=== PATIENT | male | born 1990 | race Caucasian/White ===

== ENCOUNTER 2017-12-04 12:08 | Inpatient (IN) | payer OTHER ==
[2017-12-04 13:46] VITALS: BMI 19.0
--- NOTE | 2017-12-04 18:08 | HP ---
CIWA Score - CIWA Score Nausea/Vomitin Muscle Tremors: 4-Moderate,w/Arms Extend Anxiety: 4-Mod. Anxious/Guarded Agitation: 4-Moderately Restless Paroxysmal Sweats: 1-Minimal Palms Moist Orientation: 0-Oriented Tacttile Disturbances: 1-Very Mild Itch/Numbness Auditory Disturbances: 0-None Visual Disturbances: 0-None Headache: 0-None Present CIWA-Ar Total Score: 16 Admission ROS BHS - HPI Chief Complaint: WITHDRAWAL SX Allergies/Adverse Reactions: Allergies Allergy/AdvReac Type Severity Reaction Status Date / Time No Known Allergies Allergy Verified 06/10/14 16:31 History of Present Illness: 27 YEARS OLD MALE WITH LONG HISTORY OF ALCOHOL NICOTINE DEPENDENCE HAS GERD CHRONIC BACK PAIN AND ANXIETY DEPRESSION IS ADMITTED TO DETOX Exam Limitations: No Limitations - Ebola screening Have you traveled outside of the country in the last 21 days: No Have you had contact with anyone from an Ebola affected area: No Have you been sick,other than usual withdrawal symptoms: No Do you have a fever: No - Review of Systems Constitutional: Loss of Appetite, Changes in sleep, Unintentional Wgt. Loss, Unexplained wgt Loss EENT: reports: No Symptoms Reported Respiratory: reports: SOB with Exertion Cardiac: reports: No Symptoms Reported GI: reports: Diarrhea, Nausea, Poor Appetite, Poor Fluid Intake, Vomiting, Indigestion, Abdominal cramping : reports: No Symptoms Reported Musculoskeletal: reports: Back Pain, Joint Pain (SHOULDERS) Integumentary: reports: No Symptoms Reported Neuro: reports: Tremors Endocrine: reports: No Symptoms Reported Hematology: reports: No Symptoms Reported Psychiatric: reports: Judgement Intact, Orientated x3, Anxious, Depressed Other Systems: Reviewed and Negative Patient History - Patient Medical History Hx Anemia: No Hx Asthma: No Hx Chronic Obstructive Pulmonary Disease (COPD): No Hx Cancer: No Hx Cardiac Disorders: No Hx Congestive Heart Failure: No Hx Hypertension: No Hx Hypercholesterolemia: No Hx Pacemaker: No HX Cerebrovascular Accident: No Hx Seizures: No Hx Dementia: No Hx Diabetes: No Hx Gastrointestinal Disorders: Yes (acis reflux.) Hx Liver Disease: No Hx Genitourinary Disorders: No Hx Sexually Transmitted Disorders: No Hx Renal Disease (ESRD): No Hx Thyroid Disease: No Hx Human Immunodeficiency Virus (HIV): No Hx Hepatitis C: No Hx Depression: Yes Hx Suicide Attempt: No Hx Bipolar Disorder: No Hx Schizophrenia: No - Patient Surgical History Past Surgical History: No Hx Neurologic Surgery: No Hx Cataract Extraction: No Hx Cardiac Surgery: No Hx Lung Surgery: No Hx Breast Surgery: No Hx Breast Biopsy: No Hx Abdominal Surgery: No Hx Appendectomy: No Hx Cholecystectomy: No Hx Genitourinary Surgery: No Hx Orthopedic Surgery: No - PPD History Previous Implant?: Yes Documented Results: Negative w/o proof Implanted On Prior [facility] Admission?: Yes Date: 06/12/14 PPD to be Administered?: Yes - Smoking Cessation Smoking history: Current every day smoker Have you smoked in the past 12 months: Yes Aproximately how many cigarettes per day: 20 Cigars Per Day: 0 Hx Chewing Tobacco Use: No Initiated information on smoking cessation: Yes 'Breaking Loose' booklet given: 12/04/17 - Substance & Tx. History Hx Alcohol Use: Yes Hx Substance Use: Yes Substance Use Type: Marijuana Hx Substance Use Treatment: Yes ([address] [place] [address] - Substances Abused Alcohol Route: Oral Frequency: Daily Amount used: 2 pints vodka Age of first use: 11 Date of Last Use: 12/04/17 Marijuana/Hashish Route: Smoking Frequency: Daily Amount used: 2 bowls Age of first use: 11 Date of Last Use: 12/02/17 Family Disease History - Family Disease History Family Disease History: [place]: Grandparent (breast, lung), Other: Father ( alcoholism), Sister (NO SISTER) Admission Physical Exam BHS - Vital Signs Vital Signs: Vital Signs - 24 hr 12/04/17 13:43 Temperature 97.0 F L Pulse Rate 112 H Respiratory 18 Rate Blood Pressure 150/100 - Physical General Appearance: Yes: Appropriately Dressed, Moderate Distress, Alcohol on Breath, Thin, Tremorous, Irritable, Sweating, Anxious HEENTM: Yes: Hearing grossly Normal, Normal ENT Inspection, Normocephalic, Normal Voice Respiratory: Yes: Chest Non-Tender, Lungs Clear, Normal Breath Sounds, No Respiratory Distress, No Accessory Muscle Use Neck: Yes: Supple, Trachea in good position Breast: Yes: Breasts Symetrical Cardiology: Yes: S1, S2, Murmur, Tachycardia Abdominal: Yes: Non Tender, Soft, Increased Bowel Sounds Genitourinary: Yes: Within Normal Limits Back: Yes: Normal Inspection Musculoskeletal: Yes: full range of Motion, Gait Steady, Back pain, Muscle Pain (BACK) Extremities: Yes: Normal Inspection, Normal Range of Motion, Non-Tender, Tremors Neurological: Yes: Fully Oriented, Alert, Motor Strength 5/5, Normal Response, Depressed Affect Integumentary: Yes: Warm Lymphatic: Yes: Within Normal Limits - Diagnostic (1) Alcohol dependence with uncomplicated withdrawal Current Visit: Yes Status: Acute (2) Weight loss Current Visit: Yes Status: Acute (3) Tachycardia Current Visit: Yes Status: Chronic (4) Murmur, heart Current Visit: Yes Status: Chronic (5) Anxiety with depression Current Visit: Yes Status: Suspected (6) GERD (gastroesophageal reflux disease) Current Visit: Yes Status: Chronic Qualifiers: Esophagitis presence: without esophagitis Qualified Code(s): K21.9 - Gastro -esophageal reflux disease without esophagitis (7) Nicotine dependence Current Visit: Yes Status: Acute Qualifiers: Nicotine product type: cigarettes Substance use status: in withdrawal Qualified Code(s): F17.213 - Nicotine dependence, cigarettes, with withdrawal Cleared for Admission [facility] - Detox or Rehab [facility] Level of Care: Medically Managed Detox Regimen/Protocol: Librium [facility] Breath Alcohol Content Breath Alcohol Content: 0.470 Urine Drug Screen - Results Drug Screen Negative: No Urine Drug Screen Results: THC-Marijuana
[2017-12-04] MEDS ORDERED: MENTHOL/PHENOL 1 EACH UD MM PRN (18:11)
[2017-12-04] MEDS ORDERED: MAGNESIUM CITRATE 300 ML BOTTLE PO PRN (18:11)
[2017-12-04] MEDS ORDERED: guaiFENesin/D-METHORPHAN HB 10 ML UNIT-DOSE CUPS PO PRN (18:11)
[2017-12-04] MEDS ORDERED: LOPERAMIDE HCL 2 MG CAPSULE PO PRN (18:11)
[2017-12-04] MEDS ORDERED: ACETAMINOPHEN 325 MG TABLET (FP) PO PRN (18:11)
[2017-12-04] MEDS ORDERED: MAGNESIUM HYDROX 2400MG/30ML ORAL SUSPENSION 30 ML CUP PO PRN (18:11)
[2017-12-04] MEDS ORDERED: MAG HYDROX/AL HYDROX/SIMETH 30 ML UNIT-DOSE CUP PO PRN (18:11)
[2017-12-04] MEDS ORDERED: P-EPHED 60MG/TRIPROLIDI 2.5MG TABLET PO PRN (18:11)
[2017-12-04] MEDS: chlordiazePOXIDE HCL 25 MG CAPSULE PO PRN (19:10)
[2017-12-04] MEDS: NICOTINE POLACRILEX 4 MG GUM BC PRN ×2 (19:47→22:18)
[2017-12-04] MEDS: NAPROXEN 500 MG TABLET (FP) PO SCH (22:15)
[2017-12-04] MEDS: METHOCARBAMOL 500 MG TABLET PO SCH (22:15)
[2017-12-04] MEDS: chlordiazePOXIDE HCL 25 MG CAPSULE PO SCH (22:15)
[2017-12-04] MEDS: RANITIDINE HCL 150 MG TABLET (FP) PO SCH (22:15)
[2017-12-04] MEDS: THIAMINE HCL 100 MG TABLET (FP) PO SCH (22:15)
[2017-12-05] MEDS: chlordiazePOXIDE HCL 25 MG CAPSULE PO PRN ×2 (00:31→14:43)
[2017-12-05 05:10] LABS: URINE APPEARANCE SLCLOUDY; URINE BILIRUBIN NEGATIVE (NEGATIVE); URINE BLOOD NEGATIVE (NEGATIVE); URINE COLOR AMBER; URINE GLUCOSE (UA) NEGATIVE (NEGATIVE); URINE KETONE TRACE (NEGATIVE); URINE LEUK ESTERASE NEGATIVE (NEGATIVE); URINE NITRITE NEGATIVE (NEGATIVE); URINE UROBILINOGEN NEGATIVE mg/dL (0.2-1.0)
[2017-12-05 05:20] LABS: URINE PROTEIN 3+ (NEGATIVE)
[2017-12-05 05:32] LABS: EPI CELLS RARE /HPF (FEW); URINE BACTERIA RARE /hpf (NONE SEEN); URINE HYALINE CAST 24 /lpf; URINE MUCUS MODERATE
[2017-12-05] MEDS: chlordiazePOXIDE HCL 25 MG CAPSULE PO SCH ×4 (05:59→22:15)
[2017-12-05] MEDS: METHOCARBAMOL 500 MG TABLET PO SCH ×3 (05:59→22:16)
[2017-12-05] MEDS: ONDANSETRON *ODT* 4 MG TABLET SL PRN (09:37)
[2017-12-05] MEDS: NICOTINE 21 MG/24 HOURS TOPICAL PATCH TD SCH (09:38)
[2017-12-05 10:16] LABS: CHLORIDE 90 mmol/L (98-107); POTASSIUM 3.2 mmol/L (3.5-5.1); SODIUM 134 mmol/L (136-145)
[2017-12-05] MEDS: RANITIDINE HCL 150 MG TABLET (FP) PO SCH ×2 (10:19→22:16)
[2017-12-05] MEDS: PRENATAL VITAMINS W/ FOLIC ACID TABLET (FP) PO SCH (10:19)
[2017-12-05] MEDS: NAPROXEN 500 MG TABLET (FP) PO SCH ×2 (10:19→22:16)
[2017-12-05 10:21] LABS: ALBUMIN 4.4 g/dl (3.4-5.0); ALK PHOS 61 U/L (45-117); ANION GAP 9 (8-16); BLOOD UREA NITROGEN 18 mg/dL (7-18); CALCIUM 9.4 mg/dL (8.5-10.1); CO2 35 mmol/L (21-32); CREATININE 1.1 mg/dL (0.7-1.3); GLUCOSE,RANDOM 77 mg/dL (74-106); SGOT/AST 62 U/L (15-37); SGPT/ALT 63 U/L (12-78); TOT PROT 7.3 g/dl (6.4-8.2)
--- NOTE | 2017-12-05 10:34 | PN ---
[facility] CIWA - CIWA Score Nausea/Vomitin-Int. Nausea w/Dry Heave Muscle Tremors: 4-Moderate,w/Arms Extend Anxiety: 4-Mod. Anxious/Guarded Agitation: 4-Moderately Restless Paroxysmal Sweats: 1-Minimal Palms Moist Orientation: 0-Oriented Tacttile Disturbances: 3-Moderate Itch/Numb/Burn Auditory Disturbances: 0-None Visual Disturbances: 0-None Headache: 0-None Present CIWA-Ar Total Score: 20 BHS Progress Note (SOAP) Subjective: ANXIETY,TREMORS,NAUSEA,FATIGUE,INTERMITTENT SLEEP. Objective: 12/05/17 10:33 Vital Signs Temperature 97.7 F 12/05/17 09:53 Pulse Rate 96 H 12/05/17 09:53 Respiratory Rate 18 12/05/17 09:53 Blood Pressure 152/99 12/05/17 09:53 O2 Sat by Pulse Oximetry (%) Laboratory Last Values Sodium 134 mmol/L (136-145) L 12/05/17 08:00 Potassium 3.2 mmol/L (3.5-5.1) L D 12/05/17 08:00 Chloride 90 mmol/L (98-107) L D 12/05/17 08:00 Carbon Dioxide 35 mmol/L (21-32) H D 12/05/17 08:00 Anion Gap 9 (8-16) 12/05/17 08:00 BUN 18 mg/dL (7-18) 12/05/17 08:00 Creatinine 1.1 mg/dL (0.7-1.3) D 12/05/17 08:00 Creat Clearance w eGFR > 60 (>60) 12/05/17 08:00 Random Glucose 77 mg/dL (74-106) 12/05/17 08:00 Calcium 9.4 mg/dL (8.5-10.1) 12/05/17 08:00 Total Bilirubin 1.0 mg/dL (0.2-1.0) D 12/05/17 08:00 AST 62 U/L (15-37) H D 12/05/17 08:00 ALT 63 U/L (12-78) D 12/05/17 08:00 Alkaline Phosphatase 61 U/L (45-117) 12/05/17 08:00 Total Protein 7.3 g/dl (6.4-8.2) 12/05/17 08:00 Albumin 4.4 g/dl (3.4-5.0) 12/05/17 08:00 Urine Color Dottie 12/04/17 06:30 Urine Appearance Slcloudy 12/04/17 06:30 Urine pH 5.0 (5.0-8.0) D 12/04/17 06:30 Ur Specific [place] 1.019 (1.001-1.035) 12/04/17 06:30 Urine Protein 3+ (NEGATIVE) H D 12/04/17 06:30 Urine Glucose (UA) Negative (NEGATIVE) 12/04/17 06:30 Urine Ketones Trace (NEGATIVE) H 12/04/17 06:30 Urine Blood Negative (NEGATIVE) 12/04/17 06:30 Urine Nitrite Negative (NEGATIVE) 12/04/17 06:30 Urine Bilirubin Negative (NEGATIVE) 12/04/17 06:30 Urine Urobilinogen Negative mg/dL (0.2-1.0) 12/04/17 06:30 Ur Leukocyte Esterase Negative (NEGATIVE) 12/04/17 06:30 Urine WBC (Auto) 4 /hpf (3-5) 12/04/17 06:30 Urine RBC (Auto) 3 /hpf (0-3) 12/04/17 06:30 Ur Epithelial Cells Rare /HPF (FEW) 12/04/17 06:30 Urine Bacteria Rare /hpf (NONE SEEN) 12/04/17 06:30 Hyaline Casts 24 /lpf 12/04/17 06:30 Urine Mucus Moderate 12/04/17 06:30 K+ = 3.2 Assessment: 12/05/17 10:33 WITHDRAWAL SX Plan: CONTINUE DETOX [facility]UR DIRECTED
[2017-12-05 10:35] LABS: HEMATOCRIT 36.6 % (35.4-49); HEMOGLOBIN 12.3 GM/dL (11.7-16.9); MCH 32.5 pg (25.7-33.7); MCHC 33.6 g/dl (32.0-35.9); MEAN CELL VOLUME 96.7 fl (80-96); MEAN PLT VOLUME 7.7 fl (7.5-11.1); PLATELET COUNT 277 K/MM3 (134-434); RBC 3.78 M/mm3 (4.00-5.60); RDW 13.6 % (11.9-15.9); WHITE BLOOD COUNT 6.8 K/mm3 (4.0-10.0)
[2017-12-05] MEDS ORDERED: POTASSIUM CHLORIDE ORAL LIQUID 20 MEQ/15 ML PO ONE (10:35)
--- NOTE | 2017-12-05 11:52 | CONSULT ---
[facility] Psychiatric Consult - Data Date of interview: 12/05/17 Admission source: [facility] Identifying data: Readmission to 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 Substance Abuse History: Confirmed by patient in this session.See details in current [facility] report : Smoking history: Current every day smoker. Have you smoked in the past 12 months: Yes. Aproximately how many cigarettes per day: 20. Cigars Per Day: 0. Hx Chewing Tobacco Use: No. Initiated information on smoking cessation: Yes. 'Breaking Loose' booklet given: 12/04/17. - Substance & Tx. History. Hx Alcohol Use: Yes. Hx Substance Use: Yes. Substance Use Type : Marijuana. Hx Substance Use Treatment: Yes (2013). - Substances Abused. Alcohol. Route: Oral. Frequency: Daily. Amount used: 2 pints vodka. Age of first use: 11. Date of Last Use: 12/04/17. Marijuana/ Hashish. Route: Smoking. Frequency: Daily. Amount used: 2 bowls. Age of first use: 11. Date of Last Use: 12/02/17 Medical History: GERD. Psychiatric History: Patient denies. Physical/Sexual Abuse/Trauma History: Patient denies. Additional Comment: Urine Drug Screen Results: THC-Marijuana.Noted. Mental Status Exam - Mental Status Exam Alert and Oriented to: Time, Place, Person Cognitive Function: Good Patient Appearance: Well Groomed Mood: Hopeful, Euthymic Affect: Appropriate, Normal Range Patient Behavior: Fatigued, Appropriate, Cooperative Speech Pattern: Clear, Appropriate Voice Loudness: Normal Thought Process: Intact, Goal Oriented Thought Disorder: Not Present Hallucinations: Denies Suicidal Ideation: Denies Homicidal Ideation: Denies Insight/Judgement: Poor Sleep: Poorly, Difficulty falling asleep Appetite: Good Muscle strength/Tone: Normal Gait/Station: Normal Psychiatric Findings - Problem List ([place] 1, 2,3) (1) Alcohol dependence with uncomplicated withdrawal Current Visit: Yes Status: Acute (2) Cannabis dependence Current Visit: Yes Status: Acute (3) Nicotine dependence Current Visit: Yes Status: Acute Qualifiers: Nicotine product type: cigarettes Substance use status: in withdrawal Qualified Code(s): F17.213 - Nicotine dependence, cigarettes, with withdrawal (4) Insomnia Current Visit: Yes Status: Acute - Initial Treatment Plan Initial Treatment Plan: Psychoeducation and support provided.Sleep hygiene discussed.Detoxification in progress.Trazodone 50 mg po hs.Ordered (patient's request).Patient is made aware of risk of priapism and instructed to alert MD/ RN if occurrence of erectile abnormalities (prolonged duration/pain).Mr Beckham consented (verbally) to follow this careplan.Observation.
--- NOTE | 2017-12-05 14:42 | EKG ---
Test Reason : Blood Pressure : / mmHG Vent. Rate : 087 BPM Atrial Rate : 087 BPM P-R Int : 168 ms QRS Dur : 100 ms QT Int : 502 ms P-R-T Axes : 068 085 076 degrees QTc Int : 604 ms NORMAL SINUS RHYTHM POSSIBLE LEFT ATRIAL ENLARGEMENT INCOMPLETE RIGHT BUNDLE BRANCH BLOCK LEFT VENTRICULAR HYPERTROPHY PROLONGED QT ABNORMAL ECG Confirmed by Abhijeet Hayward MD ([id number]) on 12/05/2017 2:41:50 PM Referred By: Confirmed By:Abhijeet Hayward MD
--- NOTE | 2017-12-05 14:45 | EKG ---
Test Reason : Blood Pressure : / mmHG Vent. Rate : 103 BPM Atrial Rate : 103 BPM P-R Int : 166 ms QRS Dur : 084 ms QT Int : 360 ms P-R-T Axes : 065 086 061 degrees QTc Int : 471 ms SINUS TACHYCARDIA POSSIBLE LEFT ATRIAL ENLARGEMENT NONSPECIFIC ST ABNORMALITY ABNORMAL ECG WHEN COMPARED WITH ECG OF 04-DEC-2017 20:15, T WAVE INVERSION NO LONGER EVIDENT IN INFERIOR LEADS Confirmed by Abhijeet Hayward MD ([id number]) on 12/05/2017 2:45:24 PM Referred By: Confirmed By:Abhijeet Hayward MD
--- NOTE | 2017-12-05 15:19 | EKG ---
Test Reason : Blood Pressure : / mmHG Vent. Rate : 117 BPM Atrial Rate : 117 BPM P-R Int : 158 ms QRS Dur : 088 ms QT Int : 332 ms P-R-T Axes : 072 088 -41 degrees QTc Int : 463 ms SINUS TACHYCARDIA BIATRIAL ENLARGEMENT LEFT VENTRICULAR HYPERTROPHY ABNORMAL ECG NO PREVIOUS ECGS AVAILABLE Confirmed by Abhijeet Hayward MD ([id number]) on 12/05/2017 3:18:55 PM Referred By: Confirmed By:Abhijeet Hayward MD
[2017-12-05] MEDS: POTASSIUM CHLORIDE ORAL LIQUID 20 MEQ/15 ML PO SCH (22:15)
[2017-12-05] MEDS: THIAMINE HCL 100 MG TABLET (FP) PO SCH (22:15)
[2017-12-05] MEDS: traZODone HCL 50 MG TABLET (FP) PO SCH (22:16)
[2017-12-06] MEDS: METHOCARBAMOL 500 MG TABLET PO SCH ×3 (05:10→22:19)
[2017-12-06] MEDS: chlordiazePOXIDE HCL 25 MG CAPSULE PO SCH ×3 (05:10→17:20)
[2017-12-06] MEDS: ONDANSETRON *ODT* 4 MG TABLET SL PRN (08:55)
[2017-12-06] MEDS: NICOTINE 21 MG/24 HOURS TOPICAL PATCH TD SCH (09:01)
[2017-12-06] MEDS: NAPROXEN 500 MG TABLET (FP) PO SCH ×2 (10:07→22:19)
[2017-12-06] MEDS: PRENATAL VITAMINS W/ FOLIC ACID TABLET (FP) PO SCH (10:07)
[2017-12-06] MEDS: POTASSIUM CHLORIDE ORAL LIQUID 20 MEQ/15 ML PO SCH ×2 (10:07→22:19)
[2017-12-06] MEDS: RANITIDINE HCL 150 MG TABLET (FP) PO SCH ×2 (10:07→22:19)
--- NOTE | 2017-12-06 12:15 | PN ---
[facility] CIWA - CIWA Score Nausea/Vomitin-No Nausea/No Vomiting Muscle Tremors: 4-Moderate,w/Arms Extend Anxiety: 4-Mod. Anxious/Guarded Agitation: 4-Moderately Restless Paroxysmal Sweats: 1-Minimal Palms Moist Orientation: 0-Oriented Tacttile Disturbances: 3-Moderate Itch/Numb/Burn Auditory Disturbances: 0-None Visual Disturbances: 0-None Headache: 0-None Present CIWA-Ar Total Score: 16 S Progress Note (SOAP) Subjective: ANXIETY,TREMORS,CHILLS,SWEATS. N/V RESOLVING. Objective: 12/06/17 12:14 Vital Signs Temperature 97.2 F L 12/06/17 10:07 Pulse Rate 93 H 12/06/17 10:07 Respiratory Rate 18 12/06/17 10:07 Blood Pressure 131/95 12/06/17 10:07 O2 Sat by Pulse Oximetry (%) Laboratory Last Values WBC 6.8 K/mm3 (4.0-10.0) 12/05/17 08:00 RBC 3.78 M/mm3 (4.00-5.60) L 12/05/17 08:00 Hgb 12.3 GM/dL (11.7-16.9) 12/05/17 08:00 Hct 36.6 % (35.4-49) 12/05/17 08:00 MCV 96.7 fl (80-96) H 12/05/17 08:00 MCH 32.5 pg (25.7-33.7) 12/05/17 08:00 MCHC 33.6 g/dl (32.0-35.9) 12/05/17 08:00 RDW 13.6 % (11.9-15.9) 12/05/17 08:00 Plt Count 277 K/MM3 (134-434) D 12/05/17 08:00 MPV 7.7 fl (7.5-11.1) 12/05/17 08:00 Sodium 134 mmol/L (136-145) L 12/05/17 08:00 Potassium 3.2 mmol/L (3.5-5.1) L D 12/05/17 08:00 Chloride 90 mmol/L (98-107) L D 12/05/17 08:00 Carbon Dioxide 35 mmol/L (21-32) H D 12/05/17 08:00 Anion Gap 9 (8-16) 12/05/17 08:00 BUN 18 mg/dL (7-18) 12/05/17 08:00 Creatinine 1.1 mg/dL (0.7-1.3) D 12/05/17 08:00 Creat Clearance w eGFR > 60 (>60) 12/05/17 08:00 Random Glucose 77 mg/dL (74-106) 12/05/17 08:00 Calcium 9.4 mg/dL (8.5-10.1) 12/05/17 08:00 Total Bilirubin 1.0 mg/dL (0.2-1.0) D 12/05/17 08:00 AST 62 U/L (15-37) H D 12/05/17 08:00 ALT 63 U/L (12-78) D 12/05/17 08:00 Alkaline Phosphatase 61 U/L (45-117) 12/05/17 08:00 Total Protein 7.3 g/dl (6.4-8.2) 12/05/17 08:00 Albumin 4.4 g/dl (3.4-5.0) 12/05/17 08:00 Urine Color Dottie 12/04/17 06:30 Urine Appearance Slcloudy 12/04/17 06:30 Urine pH 5.0 (5.0-8.0) D 12/04/17 06:30 Ur Specific [place] 1.019 (1.001-1.035) 12/04/17 06:30 Urine Protein 3+ (NEGATIVE) H D 12/04/17 06:30 Urine Glucose (UA) Negative (NEGATIVE) 12/04/17 06:30 Urine Ketones Trace (NEGATIVE) H 12/04/17 06:30 Urine Blood Negative (NEGATIVE) 12/04/17 06:30 Urine Nitrite Negative (NEGATIVE) 12/04/17 06:30 Urine Bilirubin Negative (NEGATIVE) 12/04/17 06:30 Urine Urobilinogen Negative mg/dL (0.2-1.0) 12/04/17 06:30 Ur Leukocyte Esterase Negative (NEGATIVE) 12/04/17 06:30 Urine WBC (Auto) 4 /hpf (3-5) 12/04/17 06:30 Urine RBC (Auto) 3 /hpf (0-3) 12/04/17 06:30 Ur Epithelial Cells Rare /HPF (FEW) 12/04/17 06:30 Urine Bacteria Rare /hpf (NONE SEEN) 12/04/17 06:30 Hyaline Casts 24 /lpf 12/04/17 06:30 Urine Mucus Moderate 12/04/17 06:30 RPR Titer Nonreactive (NONREACTIVE) 12/05/17 08:00 Hepatitis C Antibody <0.1 s/co ratio (0.0-0.9) 12/04/17 08:00 Assessment: 12/06/17 12:14 WITHDRAWAL SX Plan: CONTINUE DETOX
[2017-12-06] MEDS: chlordiazePOXIDE HCL 25 MG CAPSULE PO PRN (14:05)
[2017-12-06] MEDS: NICOTINE POLACRILEX 4 MG GUM BC PRN (18:09)
[2017-12-06] MEDS: THIAMINE HCL 100 MG TABLET (FP) PO SCH (22:18)
[2017-12-06] MEDS: chlordiazePOXIDE 5 MG CAPSULE PO SCH (22:19)
[2017-12-06] MEDS: traZODone HCL 50 MG TABLET (FP) PO SCH (22:19)
[2017-12-07] MEDS: chlordiazePOXIDE 5 MG CAPSULE PO SCH ×3 (05:17→17:51)
[2017-12-07] MEDS: METHOCARBAMOL 500 MG TABLET PO SCH ×3 (05:18→22:14)
[2017-12-07 10:06] LABS: CHLORIDE 100 mmol/L (98-107); POTASSIUM 3.9 mmol/L (3.5-5.1); SODIUM 138 mmol/L (136-145)
[2017-12-07] MEDS: RANITIDINE HCL 150 MG TABLET (FP) PO SCH ×2 (10:15→22:14)
[2017-12-07] MEDS: PRENATAL VITAMINS W/ FOLIC ACID TABLET (FP) PO SCH (10:15)
[2017-12-07] MEDS: NAPROXEN 500 MG TABLET (FP) PO SCH ×2 (10:17→22:14)
[2017-12-07] MEDS: POTASSIUM CHLORIDE ORAL LIQUID 20 MEQ/15 ML PO SCH ×2 (10:17→22:14)
[2017-12-07] MEDS: NICOTINE 21 MG/24 HOURS TOPICAL PATCH TD SCH (10:17)
[2017-12-07 10:24] LABS: ANION GAP 5 (8-16); BLOOD UREA NITROGEN 27 mg/dL (7-18); CALCIUM 8.6 mg/dL (8.5-10.1); CO2 33 mmol/L (21-32); GLUCOSE,RANDOM 87 mg/dL (74-106)
--- NOTE | 2017-12-07 10:43 | PN ---
BHS Progress Note (SOAP) Subjective: SLIGHT TREMORS,ANXIETY,NAUSEA. Objective: 12/07/17 10:42 Vital Signs Temperature 97.2 F L 12/07/17 09:25 Pulse Rate 91 H 12/07/17 09:25 Respiratory Rate 18 12/07/17 09:25 Blood Pressure 140/88 12/07/17 09:25 O2 Sat by Pulse Oximetry (%) Laboratory Last Values WBC 6.8 K/mm3 (4.0-10.0) 12/05/17 08:00 RBC 3.78 M/mm3 (4.00-5.60) L 12/05/17 08:00 Hgb 12.3 GM/dL (11.7-16.9) 12/05/17 08:00 Hct 36.6 % (35.4-49) 12/05/17 08:00 MCV 96.7 fl (80-96) H 12/05/17 08:00 MCH 32.5 pg (25.7-33.7) 12/05/17 08:00 MCHC 33.6 g/dl (32.0-35.9) 12/05/17 08:00 RDW 13.6 % (11.9-15.9) 12/05/17 08:00 Plt Count 277 K/MM3 (134-434) D 12/05/17 08:00 MPV 7.7 fl (7.5-11.1) 12/05/17 08:00 Sodium 138 mmol/L (136-145) 12/07/17 07:00 Potassium 3.9 mmol/L (3.5-5.1) D 12/07/17 07:00 Chloride 100 mmol/L (98-107) D 12/07/17 07:00 Carbon Dioxide 33 mmol/L (21-32) H 12/07/17 07:00 Anion Gap 5 (8-16) L 12/07/17 07:00 BUN 27 mg/dL (7-18) H D 12/07/17 07:00 Creatinine 1.0 mg/dL (0.7-1.3) 12/07/17 07:00 Creat Clearance w eGFR > 60 (>60) 12/05/17 08:00 Random Glucose 87 mg/dL (74-106) 12/07/17 07:00 Calcium 8.6 mg/dL (8.5-10.1) 12/07/17 07:00 Total Bilirubin 1.0 mg/dL (0.2-1.0) D 12/05/17 08:00 AST 62 U/L (15-37) H D 12/05/17 08:00 ALT 63 U/L (12-78) D 12/05/17 08:00 Alkaline Phosphatase 61 U/L (45-117) 12/05/17 08:00 Total Protein 7.3 g/dl (6.4-8.2) 12/05/17 08:00 Albumin 4.4 g/dl (3.4-5.0) 12/05/17 08:00 Urine Color Dottie 12/04/17 06:30 Urine Appearance Slcloudy 12/04/17 06:30 Urine pH 5.0 (5.0-8.0) D 12/04/17 06:30 Ur Specific [place] 1.019 (1.001-1.035) 12/04/17 06:30 Urine Protein 3+ (NEGATIVE) H D 12/04/17 06:30 Urine Glucose (UA) Negative (NEGATIVE) 12/04/17 06:30 Urine Ketones Trace (NEGATIVE) H 12/04/17 06:30 Urine Blood Negative (NEGATIVE) 12/04/17 06:30 Urine Nitrite Negative (NEGATIVE) 12/04/17 06:30 Urine Bilirubin Negative (NEGATIVE) 12/04/17 06:30 Urine Urobilinogen Negative mg/dL (0.2-1.0) 12/04/17 06:30 Ur Leukocyte Esterase Negative (NEGATIVE) 12/04/17 06:30 Urine WBC (Auto) 4 /hpf (3-5) 12/04/17 06:30 Urine RBC (Auto) 3 /hpf (0-3) 12/04/17 06:30 Ur Epithelial Cells Rare /HPF (FEW) 12/04/17 06:30 Urine Bacteria Rare /hpf (NONE SEEN) 12/04/17 06:30 Hyaline Casts 24 /lpf 12/04/17 06:30 Urine Mucus Moderate 12/04/17 06:30 RPR Titer Nonreactive (NONREACTIVE) 12/05/17 08:00 Hepatitis C Antibody <0.1 s/co ratio (0.0-0.9) 12/04/17 08:00 Assessment: 01/11/18 10:43 WITHDRAWAL SX Plan: CONTINUE DETOX
[2017-12-07] MEDS ORDERED: chlordiazePOXIDE HCL 25 MG CAPSULE PO ONE (14:30)
[2017-12-07] MEDS: NICOTINE POLACRILEX 4 MG GUM BC PRN (17:53)
[2017-12-07] MEDS: traZODone HCL 50 MG TABLET (FP) PO SCH (22:14)
[2017-12-07] MEDS: chlordiazePOXIDE HCL 10 MG CAPSULE PO SCH (22:14)
[2017-12-07] MEDS: THIAMINE HCL 100 MG TABLET (FP) PO SCH (22:14)
[2017-12-08] MEDS: chlordiazePOXIDE HCL 10 MG CAPSULE PO SCH ×2 (05:13→10:11)
[2017-12-08] MEDS: METHOCARBAMOL 500 MG TABLET PO SCH (05:13)
[2017-12-08 09:49] VITALS: BP 121/78; PULSE 111; TEMP 96
[2017-12-08] MEDS: PRENATAL VITAMINS W/ FOLIC ACID TABLET (FP) PO SCH (10:11)
[2017-12-08] MEDS: NICOTINE 21 MG/24 HOURS TOPICAL PATCH TD SCH (10:11)
[2017-12-08] MEDS: POTASSIUM CHLORIDE ORAL LIQUID 20 MEQ/15 ML PO SCH (10:11)
[2017-12-08] MEDS: NAPROXEN 500 MG TABLET (FP) PO SCH (10:11)
[2017-12-08] MEDS: RANITIDINE HCL 150 MG TABLET (FP) PO SCH (10:11)
--- NOTE | 2017-12-08 10:43 | DS ---
[facility] Detox Discharge Summary Admission Date: 12/04/17 Discharge Date: 12/08/17 - History Present History: Alcohol Dependence, Cannabis Dependence Additional Comments: DETOX COMPLETED. ALERT O X 3. REFERRED TO REHAB TODAY. Pertinent Past History: GERD HEART MURMUR TACHYCARDIA WEIGHT LOSS - Physical Exam Results Vital Signs: Vital Signs Temperature 96 F L 12/08/17 09:48 Pulse Rate 111 H 12/08/17 09:48 Respiratory Rate 18 12/08/17 09:48 Blood Pressure 121/78 12/08/17 09:48 O2 Sat by Pulse Oximetry (%) Pertinent Admission Physical Exam Findings: WITHDRAWAL SX Laboratory Last Values WBC 6.8 K/mm3 (4.0-10.0) 12/05/17 08:00 RBC 3.78 M/mm3 (4.00-5.60) L 12/05/17 08:00 Hgb 12.3 GM/dL (11.7-16.9) 12/05/17 08:00 Hct 36.6 % (35.4-49) 12/05/17 08:00 MCV 96.7 fl (80-96) H 12/05/17 08:00 MCH 32.5 pg (25.7-33.7) 12/05/17 08:00 MCHC 33.6 g/dl (32.0-35.9) 12/05/17 08:00 RDW 13.6 % (11.9-15.9) 12/05/17 08:00 Plt Count 277 K/MM3 (134-434) D 12/05/17 08:00 MPV 7.7 fl (7.5-11.1) 12/05/17 08:00 Sodium 138 mmol/L (136-145) 12/07/17 07:00 Potassium 3.9 mmol/L (3.5-5.1) D 12/07/17 07:00 Chloride 100 mmol/L (98-107) D 12/07/17 07:00 Carbon Dioxide 33 mmol/L (21-32) H 12/07/17 07:00 Anion Gap 5 (8-16) L 12/07/17 07:00 BUN 27 mg/dL (7-18) H D 12/07/17 07:00 Creatinine 1.0 mg/dL (0.7-1.3) 12/07/17 07:00 Creat Clearance w eGFR > 60 (>60) 12/05/17 08:00 Random Glucose 87 mg/dL (74-106) 12/07/17 07:00 Calcium 8.6 mg/dL (8.5-10.1) 12/07/17 07:00 Total Bilirubin 1.0 mg/dL (0.2-1.0) D 12/05/17 08:00 AST 62 U/L (15-37) H D 12/05/17 08:00 ALT 63 U/L (12-78) D 12/05/17 08:00 Alkaline Phosphatase 61 U/L (45-117) 12/05/17 08:00 Total Protein 7.3 g/dl (6.4-8.2) 12/05/17 08:00 Albumin 4.4 g/dl (3.4-5.0) 12/05/17 08:00 Urine Color Dottie 12/04/17 06:30 Urine Appearance Slcloudy 12/04/17 06:30 Urine pH 5.0 (5.0-8.0) D 12/04/17 06:30 Ur Specific [place] 1.019 (1.001-1.035) 12/04/17 06:30 Urine Protein 3+ (NEGATIVE) H D 12/04/17 06:30 Urine Glucose (UA) Negative (NEGATIVE) 12/04/17 06:30 Urine Ketones Trace (NEGATIVE) H 12/04/17 06:30 Urine Blood Negative (NEGATIVE) 12/04/17 06:30 Urine Nitrite Negative (NEGATIVE) 12/04/17 06:30 Urine Bilirubin Negative (NEGATIVE) 12/04/17 06:30 Urine Urobilinogen Negative mg/dL (0.2-1.0) 12/04/17 06:30 Ur Leukocyte Esterase Negative (NEGATIVE) 12/04/17 06:30 Urine WBC (Auto) 4 /hpf (3-5) 12/04/17 06:30 Urine RBC (Auto) 3 /hpf (0-3) 12/04/17 06:30 Ur Epithelial Cells Rare /HPF (FEW) 12/04/17 06:30 Urine Bacteria Rare /hpf (NONE SEEN) 12/04/17 06:30 Hyaline Casts 24 /lpf 12/04/17 06:30 Urine Mucus Moderate 12/04/17 06:30 RPR Titer Nonreactive (NONREACTIVE) 12/05/17 08:00 Hepatitis C Antibody <0.1 s/co ratio (0.0-0.9) 12/04/17 08:00 - Treatment Hospital Course: Detox Protocol Followed, Detoxed Safely, Responded well, Discharged Condition Good, Rehab Referral Accepted Patient has Accepted a Rehab Referral to: [facility] - Medication Discharge Medications: Ambulatory Orders Esomeprazole Mag Trihydrate [Nexium] 40 mg PO DAILY 06/10/14 Trazodone HCl [Desyrel -] 50 mg PO HS #30 tablet 12/05/17 - Diagnosis (1) Alcohol dependence with uncomplicated withdrawal Status: Acute (2) Nicotine dependence Status: Chronic Qualifiers: Nicotine product type: cigarettes Substance use status: in withdrawal Qualified Code(s): F17.213 - Nicotine dependence, cigarettes, with withdrawal (3) Weight loss Status: Acute (4) GERD (gastroesophageal reflux disease) Status: Chronic Qualifiers: Esophagitis presence: without esophagitis Qualified Code(s): K21.9 - Gastro -esophageal reflux disease without esophagitis - AMA Did Patient Leave Against Medical Advice: No
== END 2017-12-08 10:52 | disposition other institution (70) | DRG 775 ==
LOC: YASAS 12:08 → Y3N 17:32
PROVIDERS: ADMIT Internal Medicine; ATTEND Internal Medicine
PROC: HZ2ZZZZ Detoxification Services for Substance Abuse Treatment (ICD-10-PCS; principal; 2017-12-04)
DX: F10.230 Alcohol dependence with withdrawal, uncomplicated (principal); F12.20 Cannabis dependence, uncomplicated; F17.213 Nicotine dependence, cigarettes, with withdrawal; F10.280 Alcohol dependence with alcohol-induced anxiety disorder; F10.282 Alcohol dependence with alcohol-induced sleep disorder; F32.9 Major depressive disorder, single episode, unspecified; F41.8 Other specified anxiety disorders; G47.00 Insomnia, unspecified; R63.4 Abnormal weight loss; Z68.1 Body mass index [BMI] 19.9 or less, adult; R00.0 Tachycardia, unspecified; R01.1 Cardiac murmur, unspecified
CPT/HCPCS: 36415; 80048; 80053; 81003; 81015; 85027; 86593; 86803; 93005; 93010

== ENCOUNTER 2017-12-08 11:03 | Inpatient (IN) | payer OTHER ==
--- NOTE | 2017-12-08 11:15 | HP ---
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 Smokes cigarette 1ppd Psychiatric History: [place] history of previous psychiatric treatment. However, reports being prescribed Trazadone for insomnia. He was continued on trazadone 50 mg po HS for sleep by Dr Tillman on 12/05/17 while in detox Physical/Sexual Abuse/Trauma History: Denies history of verbal, physical or sexualabuse as well as DV relationship Additional Comment: Reports one previous arrest on charges of DWI in August 09, 2013 Allergies/Adverse Reactions: Allergies Allergy/AdvReac Type Severity Reaction Status Date / Time No Known Allergies Allergy Verified 06/10/14 16:31 Date of last physical exam: 12/04/17 Concur with the findings of this exam: Yes - Substance Abuse/Tx History Hx Alcohol Use: Yes Hx Substance Use: Yes Substance Use Type: Alcohol (Started drinking alcohol at age 11, consumes 2 pints of vodka daily. Last drank on 12/04/17), Marijuana (Started smoking marijuana at age 11, consumes 2 bowls daily. Last smoked on 12/02/17) Hx Substance Use Treatment: Yes (3 previous inpt detox & 2 inpt rehab admissions ) Mental Status Exam - Mental Status Exam Alert and Oriented to: Time, Place, Person Cognitive Function: Fair Patient Appearance: Well Groomed Mood: Anxious Affect: Appropriate Patient Behavior: Cooperative Speech Pattern: Clear Voice Loudness: Normal Thought Process: Intact, Goal Oriented Hallucinations: Denies Suicidal Ideation: Denies Homicidal Ideation: Denies Insight/Judgement: Fair Sleep: Poorly Appetite: Good Muscle strength/Tone: Normal Gait/Station: Normal Psychiatric Findings - Problem List ([place] 1, 2,3) (1) Alcohol dependence Current Visit: No Status: Acute (2) Cannabis dependence Current Visit: No Status: Acute (3) Nicotine dependence Current Visit: Yes Status: Chronic (4) Alcohol-induced anxiety disorder Current Visit: Yes Status: Acute (5) Alcohol-induced sleep disorder Current Visit: Yes Status: Acute (6) GERD (gastroesophageal reflux disease) Current Visit: No Status: Chronic Qualifiers: Esophagitis presence: without esophagitis Qualified Code(s): K21.9 - Gastro -esophageal reflux disease without esophagitis (7) Hypercholesterolemia Current Visit: No Status: Chronic - Initial Treatment Plan Initial Treatment Plan: 1) Continue [id number] mg po HS for insomnia. 2) Monitor progress
[2017-12-08 12:01] VITALS: BMI 19.3
[2017-12-08] MEDS ORDERED: MAGNESIUM CITRATE 300 ML BOTTLE PO PRN (12:15)
[2017-12-08] MEDS ORDERED: MENTHOL/PHENOL 1 EACH UD MM PRN (12:15)
[2017-12-08] MEDS ORDERED: MAG HYDROX/AL HYDROX/SIMETH 30 ML UNIT-DOSE CUP PO PRN (12:15)
[2017-12-08] MEDS ORDERED: guaiFENesin/D-METHORPHAN HB 10 ML UNIT-DOSE CUPS PO PRN (12:15)
[2017-12-08] MEDS ORDERED: LOPERAMIDE HCL 2 MG CAPSULE PO PRN (12:15)
[2017-12-08] MEDS ORDERED: ACETAMINOPHEN 325 MG TABLET (FP) PO PRN (12:15)
[2017-12-08] MEDS ORDERED: MAGNESIUM HYDROX 2400MG/30ML ORAL SUSPENSION 30 ML CUP PO PRN (12:15)
[2017-12-08] MEDS ORDERED: P-EPHED 60MG/TRIPROLIDI 2.5MG TABLET PO PRN (12:15)
--- NOTE | 2017-12-08 12:15 | HP ---
[facility] Rehab Assess/Revision - Admission History Admitted to Rehab from: [facility] Date of Admission to Rehab: 12/08/2017 - Vital signs Vital Signs: Vital Signs Period Temp Pulse Resp BP Sys/Wiseman Pulse Ox Last 24 Hr 98.3 F 111 20 113/94 - Findings Detox History & Physical reviewed: Yes Concur with findings: Yes Inpatient Rehab Admission - Initial Determination Are CD services needed?: Yes Free of communicable disease: Yes - Rehab Admission Criteria Comorbidities: Yes Lacks judgement: Yes Patient is meeting Inpatient Rehab admission criteria:: Yes
[2017-12-08] MEDS: PANTOPRAZOLE 40 MG TABLET (FP) PO SCH (13:44)
[2017-12-08] MEDS: NICOTINE POLACRILEX 2 MG GUM BUC PRN (20:07)
[2017-12-08] MEDS: traZODone HCL 50 MG TABLET (FP) PO SCH (21:26)
[2017-12-08] MEDS: THIAMINE HCL 100 MG TABLET (FP) PO SCH (21:26)
[2017-12-08] MEDS: CYCLOBENZAPRINE HCL 10 MG TABLET (FP) PO PRN (21:53)
[2017-12-09] MEDS: NICOTINE 14 MG/24 HOURS TOPICAL PATCH TD SCH (09:48)
[2017-12-09] MEDS: PRENATAL VITAMINS W/ FOLIC ACID TABLET (FP) PO SCH (09:48)
[2017-12-09] MEDS: PANTOPRAZOLE 40 MG TABLET (FP) PO SCH (09:48)
[2017-12-09] MEDS: CYCLOBENZAPRINE HCL 10 MG TABLET (FP) PO PRN ×2 (09:49→21:55)
[2017-12-09] MEDS: hydrOXYzine PAMOATE 50 MG CAPSULE (FP) PO PRN ×2 (09:50→21:55)
[2017-12-09] MEDS: NICOTINE POLACRILEX 2 MG GUM BUC PRN ×2 (12:46→21:56)
[2017-12-09] MEDS: THIAMINE HCL 100 MG TABLET (FP) PO SCH (21:55)
[2017-12-09] MEDS: traZODone HCL 50 MG TABLET (FP) PO SCH (21:55)
[2017-12-10] MEDS: NICOTINE 14 MG/24 HOURS TOPICAL PATCH TD SCH (09:35)
[2017-12-10] MEDS: PANTOPRAZOLE 40 MG TABLET (FP) PO SCH (09:36)
[2017-12-10] MEDS: PRENATAL VITAMINS W/ FOLIC ACID TABLET (FP) PO SCH (09:36)
[2017-12-10] MEDS: hydrOXYzine PAMOATE 50 MG CAPSULE (FP) PO PRN ×2 (09:37→17:55)
[2017-12-10] MEDS: CYCLOBENZAPRINE HCL 10 MG TABLET (FP) PO PRN ×2 (09:37→21:10)
[2017-12-10] MEDS: NICOTINE POLACRILEX 2 MG GUM BUC PRN ×2 (09:38→17:56)
[2017-12-10] MEDS: IBUPROFEN 400 MG TABLET (FP) PO PRN (12:43)
[2017-12-10] MEDS: THIAMINE HCL 100 MG TABLET (FP) PO SCH (21:09)
[2017-12-10] MEDS: traZODone HCL 50 MG TABLET (FP) PO SCH (21:10)
[2017-12-11] MEDS: PANTOPRAZOLE 40 MG TABLET (FP) PO SCH (09:18)
[2017-12-11] MEDS: NICOTINE 14 MG/24 HOURS TOPICAL PATCH TD SCH (09:18)
[2017-12-11] MEDS: PRENATAL VITAMINS W/ FOLIC ACID TABLET (FP) PO SCH (09:18)
[2017-12-11] MEDS: hydrOXYzine PAMOATE 50 MG CAPSULE (FP) PO PRN (09:19)
[2017-12-11] MEDS: CYCLOBENZAPRINE HCL 10 MG TABLET (FP) PO PRN (09:19)
[2017-12-11] MEDS: IBUPROFEN 400 MG TABLET (FP) PO PRN (10:32)
[2017-12-11] MEDS ORDERED: PNEUMOC 13-VAL CONJ-DIP CRM/PF 0.5 ML DISP.SYRIN IM ONE (12:01)
[2017-12-11] MEDS ORDERED: FLU VACCINE QUAD 60 MCG/0.5 ML (MDV 17-18) IM ONE (12:01)
[2017-12-11] MEDS ORDERED: PNEUMOCOCCAL 23 VACCINE 0.5 ML VIAL IM ONE (12:01)
[2017-12-11] MEDS: NICOTINE POLACRILEX 2 MG GUM BUC PRN (12:50)
[2017-12-12] MEDS: PRENATAL VITAMINS W/ FOLIC ACID TABLET (FP) PO SCH (10:15)
[2017-12-12] MEDS: NICOTINE 14 MG/24 HOURS TOPICAL PATCH TD SCH (10:15)
[2017-12-12] MEDS: PANTOPRAZOLE 40 MG TABLET (FP) PO SCH (10:15)
[2017-12-12] MEDS: hydrOXYzine PAMOATE 50 MG CAPSULE (FP) PO PRN ×2 (10:16→21:20)
[2017-12-12] MEDS: CYCLOBENZAPRINE HCL 10 MG TABLET (FP) PO PRN ×2 (10:16→21:20)
[2017-12-12] MEDS: NICOTINE POLACRILEX 2 MG GUM BUC PRN ×3 (10:18→22:24)
[2017-12-12] MEDS: IBUPROFEN 400 MG TABLET (FP) PO PRN ×2 (15:28→21:20)
[2017-12-12] MEDS: THIAMINE HCL 100 MG TABLET (FP) PO SCH ×2 (17:57→21:20)
[2017-12-12] MEDS: traZODone HCL 50 MG TABLET (FP) PO SCH ×2 (18:31→21:20)
[2017-12-13] MEDS: PRENATAL VITAMINS W/ FOLIC ACID TABLET (FP) PO SCH (09:41)
[2017-12-13] MEDS: NICOTINE 14 MG/24 HOURS TOPICAL PATCH TD SCH (09:41)
[2017-12-13] MEDS: PANTOPRAZOLE 40 MG TABLET (FP) PO SCH (09:41)
[2017-12-13] MEDS: IBUPROFEN 400 MG TABLET (FP) PO PRN ×2 (09:42→21:47)
[2017-12-13] MEDS: hydrOXYzine PAMOATE 50 MG CAPSULE (FP) PO PRN ×3 (09:42→21:47)
[2017-12-13] MEDS: CYCLOBENZAPRINE HCL 10 MG TABLET (FP) PO PRN ×2 (09:42→21:47)
[2017-12-13] MEDS: NICOTINE POLACRILEX 4 MG GUM BUC PRN ×3 (13:22→21:48)
[2017-12-13] MEDS: NICOTINE 21 MG/24 HOURS TOPICAL PATCH TD SCH (14:25)
[2017-12-13] MEDS: THIAMINE HCL 100 MG TABLET (FP) PO SCH (21:47)
[2017-12-13] MEDS: traZODone HCL 50 MG TABLET (FP) PO SCH (21:47)
[2017-12-14] MEDS: NICOTINE 21 MG/24 HOURS TOPICAL PATCH TD SCH (09:55)
[2017-12-14] MEDS: PANTOPRAZOLE 40 MG TABLET (FP) PO SCH (09:56)
[2017-12-14] MEDS: IBUPROFEN 400 MG TABLET (FP) PO PRN ×2 (09:56→16:54)
[2017-12-14] MEDS: PRENATAL VITAMINS W/ FOLIC ACID TABLET (FP) PO SCH (09:56)
[2017-12-14] MEDS: CYCLOBENZAPRINE HCL 10 MG TABLET (FP) PO PRN ×2 (09:56→21:03)
[2017-12-14] MEDS: hydrOXYzine PAMOATE 50 MG CAPSULE (FP) PO PRN ×3 (09:56→21:03)
[2017-12-14] MEDS: NICOTINE POLACRILEX 4 MG GUM BUC PRN ×3 (09:57→15:47)
--- NOTE | 2017-12-14 14:34 | PN ---
Psychiatric Progress Note Vital Signs: Vital Signs Period Temp Pulse Resp BP Sys/Wiseman Pulse Ox Last 24 Hr 97.2 F 86 18-18 116/82 Date of Session: 12/14/17 Chief Complaint:: Insomnia HPI: Patient addressing Alcohol and Cannabis Dependence comorbid with Nicotine Dependence, Alcohol-induce Anxiety Disorder and Alcohol-induced Sleep Disorder ROS: GERD, HLD Current Medications: Active Medications Generic Name Dose Route Start Last Admin Trade Name Freq PRN Reason Stop Dose Admin Acetaminophen 650 mg 12/08/17 12:15 Tylenol - PO Q4H PRN FEVER Al Hydroxide/Mg Hydroxide 30 ml 12/08/17 12:15 Mylanta Oral Suspension - PO Q6H PRN DYSPEPSIA Cyclobenzaprine HCl 10 mg 12/08/17 21:28 12/14/17 09:56 Flexeril - PO 10 mg TID PRN Administration MUSCLE SPASMS Eucalyptus/Menthol/Phenol/Sorbitol 1 each 12/08/17 12:15 Cepastat Lozenge - MM Q4H PRN SORE THROAT Guaifenesin 10 ml 12/08/17 12:15 Robitussin Dm - PO Q6H PRN COUGH Hydroxyzine Pamoate 50 mg 12/08/17 12:15 12/14/17 14:23 Vistaril - PO 50 mg Q4H PRN Administration AGITATION Ibuprofen 400 mg 12/08/17 12:15 12/14/17 09:56 Motrin - PO 400 mg Q6H PRN Administration Pain Level 4-6 Loperamide HCl 4 mg 12/08/17 12:15 Imodium - PO Q6H PRN DIARRHEA Magnesium Citrate 300 ml 12/08/17 12:15 Citroma - PO Q48H PRN CONSTIPATION Magnesium Hydroxide 30 ml 12/08/17 12:15 Milk Of Magnesia - PO DAILY PRN CONSTIPATION Nicotine 21 mg 12/13/17 11:15 12/14/17 09:55 Nicoderm Patch - TD 21 mg DAILY CHIVO Administration Nicotine Polacrilex 4 mg 12/13/17 10:52 12/14/17 12:36 Nicorette Gum - BUC 4 mg Q2H PRN Administration NICOTINE REPLACEMENT RX Pantoprazole Sodium 40 mg 12/08/17 13:40 12/14/17 09:56 Protonix - PO 40 mg DAILY CHIVO Administration Multivit/Folic Acid/Iron 1 tab 12/09/17 10:00 12/14/17 09:56 Vitamins (Sjr) - PO 1 tab DAILY CHIVO Administration Pseudoephedrine/Triprolidine 1 combo 12/08/17 12:15 Actifed - PO TID PRN NASAL CONGESTION Thiamine HCl 100 mg 12/08/17 22:00 12/13/17 21:47 Vitamin B1 - PO 100 mg HS CHIVO Administration Trazodone HCl 100 mg 12/14/17 22:00 Desyrel - PO HS CHIVO Current Side Effect: No Lab tests ordered: Yes Lab tests reviewed: Yes Provider note:: Patient reports experiencing difficulty to sleep. Told conventional mortgage underwriter that he has been sleeping poorly despite taking Trazadone 50 mg po HS. Requests that Seroquel dosage be raised to 100 mg Total face to face time:: 15 Mental Status Exam - Mental Status Exam Alert and Oriented to: Time, Place, Person Cognitive Function: Fair Patient Appearance: Well Groomed Mood: Hopeful, Euthymic Affect: Appropriate Patient Behavior: Cooperative Speech Pattern: Clear Voice Loudness: Normal Thought Process: Intact, Goal Oriented Thought Disorder: Not Present Hallucinations: Denies Suicidal Ideation: Denies Homicidal Ideation: Denies Insight/Judgement: Fair Sleep: Poorly Appetite: Good Muscle strength/Tone: Normal Gait/Station: Normal Psychiatric Treatment Plan - Problem List (1) Alcohol dependence Current Visit: No (2) Cannabis dependence Current Visit: No (3) Nicotine dependence Current Visit: Yes (4) Alcohol-induced anxiety disorder Current Visit: Yes (5) Alcohol-induced sleep disorder Current Visit: Yes (6) GERD (gastroesophageal reflux disease) Current Visit: No Qualifiers: Esophagitis presence: without esophagitis Qualified Code(s): K21.9 - Gastro -esophageal reflux disease without esophagitis (7) Hypercholesterolemia Current Visit: No Initial treatment plan: 1) Discontinue Trazadone 50 mg po HS. 2) Start Trazadone 100 mg po HS. 3) Monitor progress
[2017-12-14] MEDS: THIAMINE HCL 100 MG TABLET (FP) PO SCH (21:01)
[2017-12-14] MEDS: traZODone HCL 100 MG TABLET (FP) PO SCH (21:01)
[2017-12-15] MEDS: CYCLOBENZAPRINE HCL 10 MG TABLET (FP) PO PRN ×3 (06:10→21:59)
[2017-12-15] MEDS: hydrOXYzine PAMOATE 50 MG CAPSULE (FP) PO PRN ×3 (09:54→21:59)
[2017-12-15] MEDS: PRENATAL VITAMINS W/ FOLIC ACID TABLET (FP) PO SCH (09:54)
[2017-12-15] MEDS: PANTOPRAZOLE 40 MG TABLET (FP) PO SCH (09:54)
[2017-12-15] MEDS: NICOTINE 21 MG/24 HOURS TOPICAL PATCH TD SCH (09:54)
[2017-12-15] MEDS: IBUPROFEN 400 MG TABLET (FP) PO PRN ×3 (09:55→21:59)
[2017-12-15] MEDS: NICOTINE POLACRILEX 4 MG GUM BUC PRN ×2 (15:57→20:25)
[2017-12-15] MEDS: THIAMINE HCL 100 MG TABLET (FP) PO SCH (21:59)
[2017-12-15] MEDS: traZODone HCL 100 MG TABLET (FP) PO SCH (21:59)
[2017-12-16] MEDS: NICOTINE POLACRILEX 4 MG GUM BUC PRN ×5 (08:36→21:17)
[2017-12-16] MEDS: IBUPROFEN 400 MG TABLET (FP) PO PRN ×2 (08:36→21:16)
[2017-12-16] MEDS: PRENATAL VITAMINS W/ FOLIC ACID TABLET (FP) PO SCH (09:50)
[2017-12-16] MEDS: NICOTINE 21 MG/24 HOURS TOPICAL PATCH TD SCH (09:51)
[2017-12-16] MEDS: PANTOPRAZOLE 40 MG TABLET (FP) PO SCH (09:51)
[2017-12-16] MEDS: CYCLOBENZAPRINE HCL 10 MG TABLET (FP) PO PRN ×2 (09:51→21:16)
[2017-12-16] MEDS: hydrOXYzine PAMOATE 50 MG CAPSULE (FP) PO PRN (09:52)
[2017-12-16] MEDS: traZODone HCL 100 MG TABLET (FP) PO SCH (21:16)
[2017-12-16] MEDS: THIAMINE HCL 100 MG TABLET (FP) PO SCH (21:16)
[2017-12-17] MEDS: PRENATAL VITAMINS W/ FOLIC ACID TABLET (FP) PO SCH (09:50)
[2017-12-17] MEDS: hydrOXYzine PAMOATE 50 MG CAPSULE (FP) PO PRN ×2 (09:50→21:36)
[2017-12-17] MEDS: NICOTINE 21 MG/24 HOURS TOPICAL PATCH TD SCH (09:50)
[2017-12-17] MEDS: CYCLOBENZAPRINE HCL 10 MG TABLET (FP) PO PRN ×2 (09:50→21:37)
[2017-12-17] MEDS: IBUPROFEN 400 MG TABLET (FP) PO PRN ×2 (09:52→21:38)
[2017-12-17] MEDS: PANTOPRAZOLE 40 MG TABLET (FP) PO SCH (09:52)
[2017-12-17] MEDS: NICOTINE POLACRILEX 4 MG GUM BUC PRN ×2 (13:04→21:39)
[2017-12-17] MEDS: traZODone HCL 100 MG TABLET (FP) PO SCH (21:36)
[2017-12-17] MEDS: THIAMINE HCL 100 MG TABLET (FP) PO SCH (21:36)
[2017-12-18] MEDS: NICOTINE 21 MG/24 HOURS TOPICAL PATCH TD SCH (09:35)
[2017-12-18] MEDS: IBUPROFEN 400 MG TABLET (FP) PO PRN ×3 (09:35→21:58)
[2017-12-18] MEDS: PRENATAL VITAMINS W/ FOLIC ACID TABLET (FP) PO SCH (09:35)
[2017-12-18] MEDS: NICOTINE POLACRILEX 4 MG GUM BUC PRN ×3 (09:35→19:33)
[2017-12-18] MEDS: hydrOXYzine PAMOATE 50 MG CAPSULE (FP) PO PRN ×3 (09:35→21:59)
[2017-12-18] MEDS: PANTOPRAZOLE 40 MG TABLET (FP) PO SCH (09:35)
[2017-12-18] MEDS: CYCLOBENZAPRINE HCL 10 MG TABLET (FP) PO PRN ×2 (09:35→21:59)
[2017-12-18] MEDS: traZODone HCL 100 MG TABLET (FP) PO SCH (21:58)
[2017-12-18] MEDS: THIAMINE HCL 100 MG TABLET (FP) PO SCH (21:59)
[2017-12-19] MEDS: IBUPROFEN 400 MG TABLET (FP) PO PRN ×3 (08:19→21:41)
[2017-12-19] MEDS: NICOTINE POLACRILEX 4 MG GUM BUC PRN ×3 (08:20→21:43)
[2017-12-19] MEDS: NICOTINE 21 MG/24 HOURS TOPICAL PATCH TD SCH (09:50)
[2017-12-19] MEDS: CYCLOBENZAPRINE HCL 10 MG TABLET (FP) PO PRN ×2 (09:50→21:41)
[2017-12-19] MEDS: hydrOXYzine PAMOATE 50 MG CAPSULE (FP) PO PRN ×3 (09:50→21:41)
[2017-12-19] MEDS: PANTOPRAZOLE 40 MG TABLET (FP) PO SCH (09:50)
[2017-12-19] MEDS: PRENATAL VITAMINS W/ FOLIC ACID TABLET (FP) PO SCH (09:50)
[2017-12-19] MEDS: THIAMINE HCL 100 MG TABLET (FP) PO SCH (21:41)
[2017-12-19] MEDS: traZODone HCL 100 MG TABLET (FP) PO SCH (21:41)
[2017-12-20] MEDS: NICOTINE 21 MG/24 HOURS TOPICAL PATCH TD SCH (10:00)
[2017-12-20] MEDS: PANTOPRAZOLE 40 MG TABLET (FP) PO SCH (10:00)
[2017-12-20] MEDS: hydrOXYzine PAMOATE 50 MG CAPSULE (FP) PO PRN ×2 (10:00→21:46)
[2017-12-20] MEDS: NICOTINE POLACRILEX 4 MG GUM BUC PRN ×3 (10:00→15:57)
[2017-12-20] MEDS: PRENATAL VITAMINS W/ FOLIC ACID TABLET (FP) PO SCH (10:00)
[2017-12-20] MEDS: CYCLOBENZAPRINE HCL 10 MG TABLET (FP) PO PRN ×2 (10:00→21:47)
[2017-12-20] MEDS: IBUPROFEN 400 MG TABLET (FP) PO PRN ×2 (10:00→21:46)
--- NOTE | 2017-12-20 14:39 | PN ---
Psychiatric Progress Note Vital Signs: Vital Signs Period Temp Pulse Resp BP Sys/Wiseman Pulse Ox Last 24 Hr 97.6 F 112 18-20 121/72 Date of Session: 12/20/17 Chief Complaint:: Difficulty to stay awake HPI: Patient addressing Alcohol and Cannabis Dependence comorbid with Nicotine Dependence, Alcohol-induce Anxiety Disorder and Alcohol-induced Sleep Disorder ROS: GERD, HLD Current Medications: Active Medications Generic Name Dose Route Start Last Admin Trade Name Freq PRN Reason Stop Dose Admin Acetaminophen 650 mg 12/08/17 12:15 12/15/17 06:10 Tylenol - PO 650 mg Q4H PRN Administration FEVER Al Hydroxide/Mg Hydroxide 30 ml 12/08/17 12:15 Mylanta Oral Suspension - PO Q6H PRN DYSPEPSIA Cyclobenzaprine HCl 10 mg 12/08/17 21:28 12/20/17 10:00 Flexeril - PO 10 mg TID PRN Administration MUSCLE SPASMS Eucalyptus/Menthol/Phenol/Sorbitol 1 each 12/08/17 12:15 Cepastat Lozenge - MM Q4H PRN SORE THROAT Guaifenesin 10 ml 12/08/17 12:15 Robitussin Dm - PO Q6H PRN COUGH Hydroxyzine Pamoate 50 mg 12/08/17 12:15 12/20/17 10:00 Vistaril - PO 50 mg Q4H PRN Administration AGITATION Ibuprofen 400 mg 12/08/17 12:15 12/20/17 10:00 Motrin - PO 400 mg Q6H PRN Administration Pain Level 4-6 Loperamide HCl 4 mg 12/08/17 12:15 Imodium - PO Q6H PRN DIARRHEA Magnesium Citrate 300 ml 12/08/17 12:15 Citroma - PO Q48H PRN CONSTIPATION Magnesium Hydroxide 30 ml 12/08/17 12:15 Milk Of Magnesia - PO DAILY PRN CONSTIPATION Nicotine 21 mg 12/13/17 11:15 12/20/17 10:00 Nicoderm Patch - TD 21 mg DAILY CHIVO Administration Nicotine Polacrilex 4 mg 12/13/17 10:52 12/20/17 12:44 Nicorette Gum - BUC 4 mg Q2H PRN Administration NICOTINE REPLACEMENT RX Pantoprazole Sodium 40 mg 12/08/17 13:40 12/20/17 10:00 Protonix - PO 40 mg DAILY CHIVO Administration Multivit/Folic Acid/Iron 1 tab 12/09/17 10:00 12/20/17 10:00 Vitamins (Sjr) - PO 1 tab DAILY CHIVO Administration Pseudoephedrine/Triprolidine 1 combo 12/08/17 12:15 Actifed - PO TID PRN NASAL CONGESTION Thiamine HCl 100 mg 12/08/17 22:00 12/19/17 21:41 Vitamin B1 - PO 100 mg HS CHIVO Administration Trazodone HCl 50 mg 12/20/17 22:00 Desyrel - PO HS CHIOV Current Side Effect: No Lab tests ordered: Yes Lab tests reviewed: Yes Provider note:: Patient reports difficulty to stay awake. Patient was initially on Trazadone 50 mg po HS for insomnia. On 12/14/17, he reported sleeping poorly despite taking medication at that dose and requested that dosage of medication be increased. So Trazadone dosage was increased to 100 mg. Now he reports having difficulty staying awake on that increased dosage and requests that medication dosage be lowered to the previous dose Total face to face time:: 15 Mental Status Exam - Mental Status Exam Alert and Oriented to: Time, Place, Person Cognitive Function: Fair Patient Appearance: Well Groomed Mood: Hopeful, Euthymic Affect: Appropriate Patient Behavior: Sedated Speech Pattern: Clear Voice Loudness: Normal (difficulty to stay awake) Thought Process: Intact, Goal Oriented Thought Disorder: Not Present Hallucinations: Denies Suicidal Ideation: Denies Homicidal Ideation: Denies Insight/Judgement: Fair Sleep: Fair Appetite: Good Muscle strength/Tone: Normal Gait/Station: Normal Psychiatric Treatment Plan - Problem List (1) Alcohol dependence Current Visit: No (2) Cannabis dependence Current Visit: No (3) Nicotine dependence Current Visit: Yes (4) Alcohol-induced anxiety disorder Current Visit: Yes (5) Alcohol-induced sleep disorder Current Visit: Yes (6) GERD (gastroesophageal reflux disease) Current Visit: No Qualifiers: Esophagitis presence: without esophagitis Qualified Code(s): K21.9 - Gastro -esophageal reflux disease without esophagitis (7) Hypercholesterolemia Current Visit: No Initial treatment plan: 1) Discontinue Trazadone 100 mg po HS for insomnia. 2) Start Trazadone 50 mg po HS prn for insomnia. 3) Monitor progress
[2017-12-20] MEDS: traZODone HCL 50 MG TABLET (FP) PO SCH (21:46)
[2017-12-20] MEDS: THIAMINE HCL 100 MG TABLET (FP) PO SCH (21:48)
[2017-12-21] MEDS: hydrOXYzine PAMOATE 50 MG CAPSULE (FP) PO PRN ×2 (10:21→21:29)
[2017-12-21] MEDS: PRENATAL VITAMINS W/ FOLIC ACID TABLET (FP) PO SCH (10:21)
[2017-12-21] MEDS: NICOTINE POLACRILEX 4 MG GUM BUC PRN ×2 (10:22→17:39)
[2017-12-21] MEDS: IBUPROFEN 400 MG TABLET (FP) PO PRN ×2 (10:22→21:29)
[2017-12-21] MEDS: PANTOPRAZOLE 40 MG TABLET (FP) PO SCH (10:22)
[2017-12-21] MEDS: CYCLOBENZAPRINE HCL 10 MG TABLET (FP) PO PRN ×2 (10:22→21:28)
[2017-12-21] MEDS: NICOTINE 21 MG/24 HOURS TOPICAL PATCH TD SCH (10:22)
--- NOTE | 2017-12-21 10:39 | PN ---
Psychiatric Progress Note Vital Signs: Vital Signs Period Temp Pulse Resp BP Sys/Wiseman Pulse Ox Last 24 Hr 97.6 F 100 18-20 123/73 Date of Session: 12/21/17 Chief Complaint:: Discharge Note HPI: Patient addressing Alcohol and Cannabis Dependence comorbid with Nicotine Dependence, Alcohol-induced Anxiety Disorder and Alcohol-induced Sleep Disorder ROS: GERD, HLD Current Medications: Active Medications Generic Name Dose Route Start Last Admin Trade Name Freq PRN Reason Stop Dose Admin Acetaminophen 650 mg 12/08/17 12:15 12/15/17 06:10 Tylenol - PO 650 mg Q4H PRN Administration FEVER Al Hydroxide/Mg Hydroxide 30 ml 12/08/17 12:15 Mylanta Oral Suspension - PO Q6H PRN DYSPEPSIA Cyclobenzaprine HCl 10 mg 12/08/17 21:28 12/21/17 10:22 Flexeril - PO 10 mg TID PRN Administration MUSCLE SPASMS Eucalyptus/Menthol/Phenol/Sorbitol 1 each 12/08/17 12:15 Cepastat Lozenge - MM Q4H PRN SORE THROAT Guaifenesin 10 ml 12/08/17 12:15 Robitussin Dm - PO Q6H PRN COUGH Hydroxyzine Pamoate 50 mg 12/08/17 12:15 12/21/17 10:21 Vistaril - PO 50 mg Q4H PRN Administration AGITATION Ibuprofen 400 mg 12/08/17 12:15 12/21/17 10:22 Motrin - PO 400 mg Q6H PRN Administration Pain Level 4-6 Loperamide HCl 4 mg 12/08/17 12:15 Imodium - PO Q6H PRN DIARRHEA Magnesium Citrate 300 ml 12/08/17 12:15 Citroma - PO Q48H PRN CONSTIPATION Magnesium Hydroxide 30 ml 12/08/17 12:15 Milk Of Magnesia - PO DAILY PRN CONSTIPATION Nicotine 21 mg 12/13/17 11:15 12/21/17 10:22 Nicoderm Patch - TD 21 mg DAILY CHIVO Administration Nicotine Polacrilex 4 mg 12/13/17 10:52 12/21/17 10:22 Nicorette Gum - BUC 4 mg Q2H PRN Administration NICOTINE REPLACEMENT RX Pantoprazole Sodium 40 mg 12/08/17 13:40 12/21/17 10:22 Protonix - PO 40 mg DAILY CHIVO Administration Multivit/Folic Acid/Iron 1 tab 12/09/17 10:00 12/21/17 10:21 Vitamins (Sjr) - PO 1 tab DAILY CHIVO Administration Pseudoephedrine/Triprolidine 1 combo 12/08/17 12:15 Actifed - PO TID PRN NASAL CONGESTION Thiamine HCl 100 mg 12/08/17 22:00 12/20/17 21:48 Vitamin B1 - PO 100 mg HS CHIVO Administration Trazodone HCl 50 mg 12/20/17 22:00 12/20/17 21:46 Desyrel - PO 50 mg HS CHIVO Administration Current Side Effect: No Lab tests ordered: Yes Lab tests reviewed: Yes Provider note:: Patient will complete this program on 12/22/17. He has met his treatment goals and will continue to address his issues by attending AA/NA as he refuses referral for outpatient treatment. Told credit underwriter that his participation in this program has reinforced things that he knew before like the importance of making meetings and having a sponsor. He responded well to Trazadone 50 mg po HS for insomnia. Script for that medication will be electronically transmitted to [facility]. He is stable for discharge on Total face to face time:: 35 Mental Status Exam - Mental Status Exam Alert and Oriented to: Time, Place, Person Cognitive Function: Fair Patient Appearance: Well Groomed Mood: Hopeful, Euthymic Affect: Appropriate Patient Behavior: Cooperative Speech Pattern: Clear, Artificially Ventilated Voice Loudness: Limited Variation Thought Process: Goal Oriented Thought Disorder: Not Present Hallucinations: Denies Suicidal Ideation: Denies Homicidal Ideation: Denies Insight/Judgement: Fair Sleep: Fair Appetite: Good Muscle strength/Tone: Normal Gait/Station: Normal Psychiatric Treatment Plan - Problem List (1) Alcohol dependence Current Visit: No (2) Cannabis dependence Current Visit: No (3) Nicotine dependence Current Visit: Yes (4) Alcohol-induced anxiety disorder Current Visit: Yes (5) Alcohol-induced sleep disorder Current Visit: Yes (6) GERD (gastroesophageal reflux disease) Current Visit: No Qualifiers: Esophagitis presence: without esophagitis Qualified Code(s): K21.9 - Gastro -esophageal reflux disease without esophagitis (7) Hypercholesterolemia Current Visit: No Initial treatment plan: Patient will be discharged tomorrow and will be addressing his addiction issue by attending AA/NA
[2017-12-21] MEDS: traZODone HCL 50 MG TABLET (FP) PO SCH (21:27)
[2017-12-21] MEDS: THIAMINE HCL 100 MG TABLET (FP) PO SCH (21:27)
[2017-12-22 06:49] VITALS: BP 129/88; PULSE 101; TEMP 98
[2017-12-22] MEDS: PRENATAL VITAMINS W/ FOLIC ACID TABLET (FP) PO SCH (09:32)
[2017-12-22] MEDS: PANTOPRAZOLE 40 MG TABLET (FP) PO SCH (09:32)
[2017-12-22] MEDS: IBUPROFEN 400 MG TABLET (FP) PO PRN (09:33)
[2017-12-22] MEDS: hydrOXYzine PAMOATE 50 MG CAPSULE (FP) PO PRN (09:34)
[2017-12-22] MEDS: CYCLOBENZAPRINE HCL 10 MG TABLET (FP) PO PRN (09:34)
== END 2017-12-22 09:35 | disposition home or self-care (01) | DRG 772 ==
LOC: YASAS 11:03 → Y3W 11:04
PROVIDERS: ADMIT Psychiatry & Neurology Psychiatry; ATTEND Psychiatry & Neurology Psychiatry
PROC: HZ42ZZZ Group Counseling for Substance Abuse Treatment, Cognitive-Behavioral (ICD-10-PCS; principal; 2017-12-08)
DX: F10.20 Alcohol dependence, uncomplicated (principal); F12.20 Cannabis dependence, uncomplicated; F17.210 Nicotine dependence, cigarettes, uncomplicated; F10.24 Alcohol dependence with alcohol-induced mood disorder; F10.282 Alcohol dependence with alcohol-induced sleep disorder; E78.5 Hyperlipidemia, unspecified; K21.9 Gastro-esophageal reflux disease without esophagitis; E78.00 Pure hypercholesterolemia, unspecified
CPT/HCPCS: 90688; 90732; G0009